=== PATIENT | female | born 1980 | race Hispanic/Latino ===

== ENCOUNTER 2016-03-02 12:28 | Emergency (ER) | payer SELFPAY ==
[~2016-03-02 12:28] MED LIST: SYNTHROID PO SCH
[2016-03-02 13:28] LABS: Basophils % (Auto) 0.8 % (0.0-1.8); Eosinophils % (Auto) 2.2 % (0.0-4.3); Hemoglobin 12.3 gm/dl (10.1-14.3); Mean Corpuscular HGB Conc 32 % (30-34); Mean Corpuscular Volume 77 fl (79-97); Platelet Count 525 K/mm3 (140-440); Red Blood Count 4.96 M/mm3 (3.65-5.03); White Blood Count 6.4 K/mm3 (4.5-11.0)
[2016-03-02 13:43] LABS: BUN/Creatinine Ratio 11.42; Blood Urea Nitrogen 8 mg/dL (7-17); Calcium 9.3 mg/dL (8.4-10.2); Carbon Dioxide 20 mmol/L (22-30); Glucose 99 mg/dL (65-100)
[2016-03-02 13:44] LABS: Anion Gap 22 mmol/L; Chloride 99.5 mmol/L (98-107); Potassium 3.7 mmol/L (3.6-5.0); Sodium 138 mmol/L (137-145)
[2016-03-02 13:52] LABS: Mean Corpuscular Hemoglobin 25 pg (28-32); Red Cell Distribution Width 24.3 % (13.2-15.2)
[2016-03-02 16:30] LABS: Urine Drugs of Abuse Note Disclamer
[2016-03-02 16:41] LABS: Bilirubin,Urine SM (Negative); Blood,Urine NEG (Negative); Ketones,Urine 80 mg/dL (Negative); Leukocyte Esterase,Urine LG (Negative); Mucus,Urine 3+ /HPF; Nitrite,Urine NEG (Negative)
--- NOTE | 2016-03-02 19:43 | Emergency Department Report ---
ED Psych HPI - General Chief Complaint: Psych Stated Complaint: THREATING Time Seen by Provider: 03/02/16 15:17 Source: patient Mode of arrival: Ambulatory Limitations: No Limitations - History of Present Illness Initial Comments: 35-year-old female with a past medical history of hypothyroidism, hypertension, COPD, asthma, polysubstance abuse presents to the hospital complaining of suicidal ideation. Patient states she has been suicidal for about 1 month. She Presents Here February 20 after Drinking Bleach. Patient Was Admitted and Treated Medically and Discharged. Patient Feels She Needs to Be Transferred to Inpatient Psychiatric Facility. Her Plan to Kill Himself about Is Using a Gun to Shoot Herself If She Had Access to a Gun. Patient states he is homeless. Denies drug use currently. Denies hallucinations or physical complaints - Related Data Home Medications Medication Instructions Recorded Confirmed Last Taken ALPRAZolam [Xanax TAB] 1 mg PO TID PRN 05/11/15 03/02/16 Unknown Levothyroxine [Synthroid] 75 mcg PO QAM 05/11/15 03/02/16 02/20/16 Oxycodone HCl/Acetaminophen 1 each PO Q6HR PRN 02/21/16 03/02/16 02/20/16 [Percocet 10/325 mg] Allergies Allergy/AdvReac Type Severity Reaction Status Date / Time amoxicillin [Amoxicillin] Allergy Swelling Verified 02/24/13 09:07 codeine Allergy Swelling Verified 02/24/13 09:07 Penicillins Allergy Swelling Verified 02/24/13 09:07 ED Review of Systems ROS: Stated complaint: THREATING Other details as noted in HPI Comment: All other systems reviewed and negative Other: Constitutional: No fevers chills Eyes: No eye pain visual changes ENT: No ear pain or throat pain Neck: Denies pain Respiratory: Denies cough wheezing shortness of breath Cardiovascular: Denies chest pain, palpitations, syncope GI: Denies abdominal pain, nausea, vomiting, diarrhea : Denies dysuria, urinary frequency, or urgency Musculoskeletal: Denies back pain Neurologic: Denies headache, numbness, weakness Psychiatric: As per HPI ED Past Medical Hx - Past Medical History Hx Hypertension: Yes Hx Congestive Heart Failure: No Hx Diabetes: No Hx Psychiatric Treatment: No Hx Asthma: Yes Hx COPD: Yes Hx HIV: No Additional medical history: Thyroid Dz - Surgical History Hx Cholecystectomy: Yes Additional Surgical History: Right foot surgery with pins and plates - Social History Smoking Status: Current Every Day Smoker Substance Use Type: None - Medications Home Medications: Home Medications Medication Instructions Recorded Confirmed Last Taken Type ALPRAZolam [Xanax TAB] 1 mg PO TID PRN 05/11/15 03/02/16 Unknown History Levothyroxine [Synthroid] 75 mcg PO QAM 05/11/15 03/02/16 02/20/16 History Oxycodone HCl/Acetaminophen 1 each PO Q6HR PRN 02/21/16 03/02/16 02/20/16 History [Percocet 10/325 mg] ED Physical Exam - General Limitations: No Limitations - Other Other exam information: General: No limitations, patient is alert in no acute distress Head exam: Atraumatic, normocephalic Eyes exam: Normal appearance, pupils equal reactive to light, extraocular movements intact ENT: Moist mucous membrane, normal oropharynx Neck exam: Normal inspection, full range of motion, no meningismus nontender Respiratory exam: Clear to auscultation bilateral, no wheezes, rales, crackles Cardiovascular: Normal rate and rhythm, normal heart sounds Abdomen: Soft, nondistended, and nontender, with normal bowel sounds, no rebound, or guarding Extremity: Full range of motion normal inspection no deformity Back: Normal Inspection, full range of motion, no tenderness Neurologic: Alert, oriented x3, cranial nerves intact, no motor or sensory deficit Psychiatric: Tearful Skin: Warm, dry, intact ED Course Vital Signs 03/02/16 03/02/16 03/02/16 12:36 13:00 13:03 Temperature 97.9 F 98.2 F Pulse Rate 108 H 111 H Respiratory 20 24 24 Rate Blood Pressure 132/100 Blood Pressure 127/92 [Left] O2 Sat by Pulse 100 98 98 Oximetry 03/02/16 14:34 Temperature Pulse Rate 72 Respiratory Rate Blood Pressure Blood Pressure 119/78 [Left] O2 Sat by Pulse Oximetry ED Medical Decision Making - Lab Data Result diagrams: 03/02/16 13:08 03/02/16 13:08 Lab Results 03/02/16 03/02/16 03/02/16 Range/Units 13:08 13:08 13:08 WBC 6.4 (4.5-11.0) K/mm3 RBC 4.96 (3.65-5.03) M/mm3 Hgb 12.3 (10.1-14.3) gm/dl Hct 38.0 (30.3-42.9) % MCV 77 L (79-97) fl MCH 25 L (28-32) pg MCHC 32 (30-34) % RDW 24.3 H (13.2-15.2) % Plt Count 525 H (140-440) K/mm3 Lymph % (Auto) 31.2 (13.4-35.0) % [place] % (Auto) 6.4 (0.0-7.3) % Eos % (Auto) 2.2 (0.0-4.3) % Baso % (Auto) 0.8 (0.0-1.8) % Lymph # 2.0 (1.2-5.4) K/mm3 [place] # 0.4 (0.0-0.8) K/mm3 Eos # 0.1 (0.0-0.4) K/mm3 Baso # 0.0 (0.0-0.1) K/mm3 Seg Neutrophils % 59.4 (40.0-70.0) % Seg Neutrophils # 3.8 (1.8-7.7) K/mm3 Sodium 138 (137-145) mmol/L Potassium 3.7 (3.6-5.0) mmol/L Chloride 99.5 (98-107) mmol/L Carbon Dioxide 20 L (22-30) mmol/L Anion Gap 22 mmol/L BUN 8 (7-17) mg/dL Creatinine 0.7 (0.7-1.2) mg/dL Estimated GFR > 60 ml/min BUN/Creatinine Ratio 11.42 % Glucose 99 (65-100) mg/dL Calcium 9.3 (8.4-10.2) mg/dL Urine Color (Yellow) Urine Turbidity (Clear) Urine pH (5.0-7.0) Ur Specific [place] (1.003-1.030) Urine Protein (Negative) mg/dL Urine Glucose (UA) (Negative) mg/dL Urine Ketones (Negative) mg/dL Urine Blood (Negative) Urine Nitrite (Negative) Ur Reducing Substances Urine Bilirubin (Negative) Urine Ictotest (Negative) Urine Urobilinogen (<2.0) mg/dL Ur Leukocyte Esterase (Negative) Urine WBC (Auto) (0.0-6.0) /HPF Urine RBC (Auto) (0.0-6.0) /HPF U Epithel Cells (Auto) (0-13.0) /HPF Hyaline Casts /LPF Urine Mucus /HPF Urine HCG, Qual (Negative) Urine Opiates Screen Urine Methadone Screen Ur Barbiturates Screen Ur Phencyclidine Scrn Ur Amphetamines Screen U Benzodiazepines Scrn Urine Cocaine Screen U Marijuana (THC) Screen Drugs of Abuse Note Plasma/Serum Alcohol < 0.01 (0-0.07) gm% 03/02/16 03/02/16 Range/Units 16:22 16:22 WBC (4.5-11.0) K/mm3 RBC (3.65-5.03) M/mm3 Hgb (10.1-14.3) gm/dl Hct (30.3-42.9) % MCV (79-97) fl MCH (28-32) pg MCHC (30-34) % RDW (13.2-15.2) % Plt Count (140-440) K/mm3 Lymph % (Auto) (13.4-35.0) % [place] % (Auto) (0.0-7.3) % Eos % (Auto) (0.0-4.3) % Baso % (Auto) (0.0-1.8) % Lymph # (1.2-5.4) K/mm3 [place] # (0.0-0.8) K/mm3 Eos # (0.0-0.4) K/mm3 Baso # (0.0-0.1) K/mm3 Seg Neutrophils % (40.0-70.0) % Seg Neutrophils # (1.8-7.7) K/mm3 Sodium (137-145) mmol/L Potassium (3.6-5.0) mmol/L Chloride (98-107) mmol/L Carbon Dioxide (22-30) mmol/L Anion Gap mmol/L BUN (7-17) mg/dL Creatinine (0.7-1.2) mg/dL Estimated GFR ml/min BUN/Creatinine Ratio % Glucose (65-100) mg/dL Calcium (8.4-10.2) mg/dL Urine Color [place] (Yellow) Urine Turbidity Clear (Clear) Urine pH 5.0 (5.0-7.0) Ur Specific [place] 1.028 (1.003-1.030) Urine Protein 100 mg/dl (Negative) mg/dL Urine Glucose (UA) Neg (Negative) mg/dL Urine Ketones 80 (Negative) mg/dL Urine Blood Neg (Negative) Urine Nitrite Neg (Negative) Ur Reducing Substances Not Reportable Urine Bilirubin Sm (Negative) Urine Ictotest Negative (Negative) Urine Urobilinogen 4.0 (<2.0) mg/dL Ur Leukocyte Esterase Lg (Negative) Urine WBC (Auto) 9.0 H (0.0-6.0) /HPF Urine RBC (Auto) 20.0 (0.0-6.0) /HPF U Epithel Cells (Auto) 8.0 (0-13.0) /HPF Hyaline Casts 7 /LPF Urine Mucus 3+ /HPF Urine HCG, Qual Negative (Negative) Urine Opiates Screen Presumptive negative Urine Methadone Screen Presumptive negative Ur Barbiturates Screen Presumptive negative Ur Phencyclidine Scrn Presumptive negative Ur Amphetamines Screen Presumptive positive U Benzodiazepines Scrn Presumptive positive Urine Cocaine Screen Presumptive negative U Marijuana (THC) Screen Presumptive positive Drugs of Abuse Note Disclamer Plasma/Serum Alcohol (0-0.07) gm% - Medical Decision Making 1013 and transfer forms signed. Patient will need psychiatric admission for suicidal ideation. - Differential Diagnosis depression, homelessness, medication noncompliance, substance abuse Critical Care Time: No Critical care attestation.: If time is entered above; I have spent that time in minutes in the direct care of this critically ill patient, excluding procedure time. ED Disposition Clinical Impression: Suicidal ideation, Polysubstance abuse, Medical clearance for psychiatric admission Disposition: DC/TX PSY HOSP/PSY UNIT Is pt being admited?: No Condition: Stable Time of Disposition: 19:44 (awaiting acceptance)
--- NOTE | 2016-03-03 05:47 | Event Note ---
Date: 03/03/16 Vital signs reviewed. No recent events. awaits psychiatric placement. Vital Signs 03/02/16 03/02/16 03/02/16 12:36 13:00 13:03 Temperature 97.9 F 98.2 F Pulse Rate 108 H 111 H Respiratory 20 24 24 Rate Blood Pressure 132/100 Blood Pressure 127/92 [Left] O2 Sat by Pulse 100 98 98 Oximetry 03/02/16 03/02/16 03/02/16 14:34 19:40 22:23 Temperature 98.4 F Pulse Rate 72 63 Respiratory 18 18 Rate Blood Pressure Blood Pressure 119/78 119/79 [Left] O2 Sat by Pulse 97 Oximetry
[2016-03-03] MEDS: SYNTHROID PO SCH (14:16)
[2016-03-03] MEDS ORDERED: ZITHROMAX PO ONE (23:25)
--- NOTE | 2016-03-03 23:30 | Emergency Department Report ---
Blank Doc - Documentation Documentation: Was informed by the nurse that this patient is having dysuria. She has a few red cells and white cells in her urine. She was given a azithromycin empirically. She is also noted to have a positive amphetamine screen and a CO2 of 20. Therefore a CK was ordered. Nurse will follow-up on the value. I reviewed her medical record.
[2016-03-04 00:06] LABS: Creatine Kinase MB 2.1 ng/mL (0.0-4.0)
--- NOTE | 2016-03-04 05:57 | Event Note ---
Date: 03/04/16 Vital signs reviewed. Patient awaits psychiatric placement. Vital Signs 03/02/16 03/02/16 03/02/16 12:36 13:00 13:03 Temperature 97.9 F 98.2 F Pulse Rate 108 H 111 H Respiratory 20 24 24 Rate Blood Pressure 132/100 Blood Pressure 127/92 [Left] O2 Sat by Pulse 100 98 98 Oximetry 03/02/16 03/02/16 03/02/16 14:34 19:40 22:23 Temperature 98.4 F Pulse Rate 72 63 Respiratory 18 18 Rate Blood Pressure Blood Pressure 119/78 119/79 [Left] O2 Sat by Pulse 97 Oximetry 03/03/16 03/03/16 11:00 20:04 Temperature 98.8 F 98.6 F Pulse Rate 98 H 64 Respiratory 18 16 Rate Blood Pressure Blood Pressure 124/84 150/92 [Left] O2 Sat by Pulse 98 98 Oximetry
[2016-03-04] MEDS: SYNTHROID PO SCH (10:41)
[2016-03-04] MEDS ORDERED: HABITROL TD ONE (13:26)
[2016-03-04] MEDS ORDERED: SYNTHROID PO SCH (14:00)
[2016-03-05] MEDS: SYNTHROID PO SCH (09:47)
[2016-03-05] MEDS: ZESTRIL PO SCH (09:47)
[2016-03-06] MEDS ORDERED: ATIVAN IV PRN ×3 (05:24)
--- NOTE | 2016-03-06 05:30 | Emergency Department Report ---
Blank Doc - Documentation Documentation: Nurses note and vital signs reviewed. Vital signs stable. [facility] requesting that patient be placed on CIWA protocol. Patient has been here for 4 days and vital signs have been normal without tachycardia or reports of alcohol withdrawal symptoms. Previous request I have ordered CIWA at this time per their request. [facility] also expressed concern for elevated platelet. Previous medical record reviewed. Patient has had elevated platelets intermittently in the past. This is not a criteria to refuse patient and patient may follow-up as outpatient with either a primary care doctor or supervisor ore dressing for further monitoring.
[2016-03-06] MEDS: SYNTHROID PO SCH (09:49)
[2016-03-06] MEDS: ZESTRIL PO SCH (09:49)
[2016-03-06] MEDS: BENADRYL PO PRN (23:13)
[2016-03-07] MEDS: SYNTHROID PO SCH (09:43)
[2016-03-07] MEDS: ZESTRIL PO SCH (09:43)
--- NOTE | 2016-03-07 14:44 | Event Note ---
Date: 03/07/16 Vital signs reviewed. Await psychiatric placement. Vital Signs 03/02/16 03/02/16 03/02/16 12:36 13:00 13:03 Temperature 97.9 F 98.2 F Pulse Rate 108 H 111 H Respiratory 20 24 24 Rate Blood Pressure 132/100 Blood Pressure 127/92 [Left] O2 Sat by Pulse 100 98 98 Oximetry 03/02/16 03/02/16 03/02/16 14:34 19:40 22:23 Temperature 98.4 F Pulse Rate 72 63 Respiratory 18 18 Rate Blood Pressure Blood Pressure 119/78 119/79 [Left] O2 Sat by Pulse 97 Oximetry 03/03/16 03/03/16 03/04/16 11:00 20:04 10:57 Temperature 98.8 F 98.6 F 97.3 F L Pulse Rate 98 H 64 75 Respiratory 18 16 18 Rate Blood Pressure Blood Pressure 124/84 150/92 131/91 [Left] O2 Sat by Pulse 98 98 96 Oximetry 03/04/16 03/05/16 03/05/16 22:00 07:59 08:15 Temperature 97.5 F L 98.3 F Pulse Rate 82 74 Respiratory 18 12 16 Rate Blood Pressure Blood Pressure 125/63 117/81 [Left] O2 Sat by Pulse 97 98 98 Oximetry 03/05/16 03/05/16 03/06/16 09:47 22:00 08:24 Temperature 98.1 F Pulse Rate 74 79 Respiratory 18 18 Rate Blood Pressure 117/81 Blood Pressure 103/73 [Left] O2 Sat by Pulse 96 96 Oximetry 03/06/16 03/06/16 03/07/16 09:49 22:00 07:59 Temperature 98 F 98.0 F Pulse Rate 80 67 Respiratory 16 18 18 Rate Blood Pressure 100/56 Blood Pressure 100/56 112/74 [Left] O2 Sat by Pulse 98 98 98 Oximetry 03/07/16 09:43 Temperature 98.1 F Pulse Rate 54 L Respiratory 18 Rate Blood Pressure 120/80 Blood Pressure 120/80 [Left] O2 Sat by Pulse 97 Oximetry
[2016-03-07] MEDS: BENADRYL PO PRN (22:00)
[2016-03-08] MEDS: SYNTHROID PO SCH (10:24)
[2016-03-08] MEDS: ZESTRIL PO SCH (10:24)
[2016-03-08] MEDS: XANAX PO PRN (14:38)
[2016-03-08] MEDS: BENADRYL PO PRN (22:43)
--- NOTE | 2016-03-09 01:21 | Event Note ---
Date: 03/09/16 Vital signs are reviewed. No recent events. awaits psychiatric placement Vital Signs 03/02/16 03/02/16 03/02/16 12:36 13:00 13:03 Temperature 97.9 F 98.2 F Pulse Rate 108 H 111 H Respiratory 20 24 24 Rate Blood Pressure 132/100 Blood Pressure 127/92 [Left] O2 Sat by Pulse 100 98 98 Oximetry 03/02/16 03/02/16 03/02/16 14:34 19:40 22:23 Temperature 98.4 F Pulse Rate 72 63 Respiratory 18 18 Rate Blood Pressure Blood Pressure 119/78 119/79 [Left] O2 Sat by Pulse 97 Oximetry 03/03/16 03/03/16 03/04/16 11:00 20:04 10:57 Temperature 98.8 F 98.6 F 97.3 F L Pulse Rate 98 H 64 75 Respiratory 18 16 18 Rate Blood Pressure Blood Pressure 124/84 150/92 131/91 [Left] O2 Sat by Pulse 98 98 96 Oximetry 03/04/16 03/05/16 03/05/16 22:00 07:59 08:15 Temperature 97.5 F L 98.3 F Pulse Rate 82 74 Respiratory 18 12 16 Rate Blood Pressure Blood Pressure 125/63 117/81 [Left] O2 Sat by Pulse 97 98 98 Oximetry 03/05/16 03/05/16 03/06/16 09:47 22:00 08:24 Temperature 98.1 F Pulse Rate 74 79 Respiratory 18 18 Rate Blood Pressure 117/81 Blood Pressure 103/73 [Left] O2 Sat by Pulse 96 96 Oximetry 03/06/16 03/06/16 03/07/16 09:49 22:00 07:59 Temperature 98 F 98.0 F Pulse Rate 80 67 Respiratory 16 18 18 Rate Blood Pressure 100/56 Blood Pressure 100/56 112/74 [Left] O2 Sat by Pulse 98 98 98 Oximetry 03/07/16 03/07/16 03/08/16 09:43 19:28 07:54 Temperature 98.1 F 97.6 F Pulse Rate 54 L 61 Respiratory 18 18 16 Rate Blood Pressure 120/80 Blood Pressure 120/80 102/70 [Left] O2 Sat by Pulse 97 97 Oximetry 03/08/16 03/08/16 03/08/16 07:56 10:24 20:00 Temperature 98 F Pulse Rate 61 65 Respiratory 16 18 Rate Blood Pressure 102/70 Blood Pressure 112/70 [Left] O2 Sat by Pulse 97 99 Oximetry
[2016-03-09] MEDS: SYNTHROID PO SCH (09:53)
[2016-03-09] MEDS: ZESTRIL PO SCH (09:53)
--- NOTE | 2016-03-09 14:17 | Emergency Department Report ---
Blank Doc - Documentation Documentation: Vital signs the nurse's notes reviewed. Patient was angry this morning due to prolonged acceptance and transfer time. She is awaiting transport to [facility]. Tolerating medications. She has not required medications from [facility] protocol
[2016-03-09] MEDS: XANAX PO PRN ×2 (15:36→22:27)
[2016-03-09] MEDS: BENADRYL PO PRN (22:28)
[2016-03-10] MEDS: SYNTHROID PO SCH (10:27)
[2016-03-10] MEDS: ZESTRIL PO SCH (10:40)
[2016-03-10] MEDS: XANAX PO PRN (10:40)
[2016-03-10 10:41] VITALS: BP 116/69
== END 2016-03-10 10:52 ==
LOC: ED 12:28 → EEVIPCON 12:28 → ED 03-10 10:52
DX: R45.851 Suicidal ideations (principal); F19.10 Other psychoactive substance abuse, uncomplicated; I10 Essential (primary) hypertension; J45.909 Unspecified asthma, uncomplicated; J44.9 Chronic obstructive pulmonary disease, unspecified; F17.200 Nicotine dependence, unspecified, uncomplicated; Z88.1 Allergy status to other antibiotic agents; Z88.5 Allergy status to narcotic agent; Z88.0 Allergy status to penicillin
CPT/HCPCS: 36415; 80048; 80307; 81001; 81025; 82550; 82553; 85025; 85049; 99285; G0480; 80320